=== PATIENT | male | born 1995 | race Caucasian/White ===

== ENCOUNTER 2016-11-08 04:13 | Emergency (ER) | payer SELFPAY ==
[~2016-11-08] VITALS: Ht 185.4 cm; Wt 94.0 kg
[2016-11-08 05:46] LABS: CHLORIDE 106 mEq/L (99-109); SODIUM 141 mEq/L (136-147)
[2016-11-08 05:48] LABS: GLUCOSE 115 mg/dL (70-99)
[2016-11-08 05:49] LABS: ANION GAP 15 MEQ/L (2-14)
[2016-11-08 05:50] LABS: TOTAL BILIRUBIN 0.2 mg/dL (0.0-1.0)
[2016-11-08 05:51] LABS: ALKALINE PHOSPHATASE 91 IU/L (3-129); SERUM ETHYL ALCOHOL 241 mg/dL
[2016-11-08 05:53] LABS: UREA NITROGEN (BUN) 11 mg/dL (9-23)
[2016-11-08 05:54] LABS: GFR ESTIMATE (CALCULATED) > 59 mL/min/
[2016-11-08 05:55] LABS: EOSINOPHIL (%) 0.9 % (0-5); EOSINOPHIL COUNT 0.1 K/uL (0-0.3); HEMATOCRIT 42.8 % (38.0-50.0); IMMATURE GRANULOCYTE COUNT 0.1 K/uL; INSTRUMENT ABS NEUTROPHIL CT 7.5 K/uL; LIPASE 13 U/L (1.0-51.0); LYMPHOCYTE COUNT 2.9 K/uL (1.0-2.8); MCH 25.4 PG (29.0-34.0); MCHC 31.3 G/DL (30.0-36.0); MCV 81.1 FL (86-99); MONOCYTE (%) 7.1 % (3-12); MONOCYTE COUNT 0.8 K/uL (0-0.8); NEUTROPHIL (%) 65.4 % (45-76); NEUTROPHIL COUNT 7.5 K/uL (1.8-6.4); PLATELET COUNT 308 K/uL (156-360); RBC DIS.WIDTH-CV 13.7 % (11.8-14.6); RBC DIS.WIDTH-SD 40.2 % (39-53); RED BLOOD COUNT 5.28 M/uL (4.00-5.50); WHITE BLOOD COUNT 11.4 K/uL (4.1-10.2)
[2016-11-08 09:46] LABS: AMPHETAMINE NEGATIVE (500 ng/mL); BARBITURATES NEGATIVE (200 ng/mL); BENZODIAZEPINES NEGATIVE (150 ng/mL); COCAINE NEGATIVE (150 ng/mL); METHADONE NEGATIVE (200 ng/mL); METHAMPHETAMINE NEGATIVE (500 ng/mL); OPIATES (MORPHINE) NEGATIVE (100 ng/mL); PHENCYCLIDINE NEGATIVE (25 ng/mL); THC CANNABINOIDS NEGATIVE (50 ng/mL); TRICYCLIC ANTIDEPRESSANTS NEGATIVE (300 ng/mL)
[2016-11-08 09:47] LABS: INTERNAL CONTROLS VALID? YES; OXYCODONE NEGATIVE (100 ng/mL); PROPOXYPHENE NEGATIVE (300 ng/mL)
[2016-11-08 11:34] VITALS: BP 110/64
== END 2016-11-08 11:34 | disposition home or self-care (01) ==
LOC: EME 04:13
PROVIDERS: Emergency Medicine
DX: F10.129 Alcohol abuse with intoxication, unspecified (principal); R11.10 Vomiting, unspecified; Y90.8 Blood alcohol level of 240 mg/100 ml or more
CPT/HCPCS: 70450; 71010; 72125; 80053; 83690; 85025; 99281; 99284; G0480; J2405; J7030